=== PATIENT | male | born 1960 | race Caucasian/White ===

== ENCOUNTER 2016-12-23 07:03 | Emergency (ER) | payer MEDICAID ==
[~2016-12-23] VITALS: Ht 170.2 cm; Wt 99.0 kg
[~2016-12-23 07:03] MED LIST: ALBU2.5V NPPB; ALBU6.7H INH; CEFD300C37 PO; DOXY100C2 PO; FLUT1AER INH; LEVO100T PO; LEVO100V PO; LEVO750T26 PO; PRED20TA PO; TAMS-11 PO; TAMS0.4C2 PO; TOPI100T24 PO; TOPI100T38 PO
[2016-12-23 07:05] VITALS: BP 164/90
[2016-12-23 08:41] LABS: BLOOD UREA NITROGEN 13 mg/dL (7-18)
[2016-12-23 08:46] LABS: ASPARTATE AMINO TRANSFERASE 10 U/L (15-37)
== END 2016-12-23 09:17 | disposition left against medical advice (07) ==
LOC: ED 09:11
DX: N40.1 Benign prostatic hyperplasia with lower urinary tract symptoms (principal); R33.8 Other retention of urine; R30.0 Dysuria; J45.909 Unspecified asthma, uncomplicated; E03.9 Hypothyroidism, unspecified
CPT/HCPCS: 36415; 80053; 83690; 85025; 99284

== ENCOUNTER 2016-12-23 11:41 | Emergency (ER) | payer MEDICAID ==
[~2016-12-23] VITALS: Ht 175.3 cm; Wt 90.0 kg
[2016-12-23 12:08] VITALS: BP 123/92
[2016-12-23] MEDS ORDERED: PHENAZOPYRIDINE 200 MG TABLET PO ONE (12:30)
[2016-12-23] MEDS ORDERED: PHENAZOPYRIDINE 200 MG TABLET ONE (12:35)
[2016-12-23 12:52] LABS: PATH.CAST-FLAG NOT PRESENT; SPERM-FLAG NOT PRESENT; SRC-FLAG NOT PRESENT; XTAL-FLAG NOT PRESENT; YLC-FLAG NOT PRESENT
== END 2016-12-23 14:34 | disposition home or self-care (01) ==
LOC: ED 14:05
DX: N30.01 Acute cystitis with hematuria (principal); E03.9 Hypothyroidism, unspecified; J45.909 Unspecified asthma, uncomplicated; Z88.0 Allergy status to penicillin; Z88.8 Allergy status to other drugs, medicaments and biological substances
CPT/HCPCS: 81001; 87086; 99284

== ENCOUNTER 2017-01-17 15:51 | Inpatient (IN) | payer MEDICAID ==
[~2017-01-17] VITALS: Ht 170.2 cm; Wt 102.8 kg
[2017-01-17] MEDS ORDERED: ASPIRIN 81 MG TABLET CHEW PO ONE (16:30)
[2017-01-17] MEDS ORDERED: SODIUM CHLORIDE FLUSH 10ML SYR IVF ONE (16:30)
[2017-01-17] MEDS ORDERED: methylPREDNISolone SOD SUCC 125 MG/2 ML IVP ONE (16:30)
[2017-01-17] MEDS ORDERED: ASPIRIN 81 MG TABLET CHEW ONE (16:32)
[2017-01-17] MEDS ORDERED: methylPREDNISolone SOD SUCC 125 MG/2 ML ONE (16:50)
[2017-01-17] MEDS ORDERED: MAGNESIUM SULFATE 1 GM in SODIUM CHLORIDE 0.9% 50 ML IV ONE (17:00)
[2017-01-17 17:01] LABS: ASPARTATE AMINO TRANSFERASE 13 U/L (15-37); BLOOD UREA NITROGEN 11 mg/dL (7-18)
[2017-01-17 17:07] LABS: IS PT STATUS REG ER OR PRE ER? YES
[2017-01-17] MEDS: ALBUTEROL/IPRATROPIUM 2.5MG/0.5MG, 3 ML NPPB SCH (17:14)
[2017-01-17] MEDS ORDERED: AZITHROMYCIN 500 MG in SODIUM CHLORIDE 0.9% 250 ML IV ONE (18:30)
[2017-01-17] MEDS ORDERED: ACETAMINOPHEN 325 MG TABLET PO PRN (19:30)
[2017-01-17] MEDS ORDERED: BISACODYL 10 MG SUPP PR PRN (19:30)
[2017-01-17] MEDS ORDERED: POLYETHYLENE GLYCOL 17 GM PACKET PO PRN (19:30)
[2017-01-17] MEDS ORDERED: GUAIFENESIN/DM 200-20MG, 10ML UDC PO PRN (19:30)
[2017-01-17] MEDS: AZITHROMYCIN 500 MG in SODIUM CHLORIDE 0.9% 250 ML IV SCH (19:30)
[2017-01-17] MEDS ORDERED: MAGNESIUM SULFATE PMX 2GM/50ML 50 ML IV ONE (19:30)
[2017-01-17] MEDS: HEPARIN 5,000 UNITS/ML, 1ML SQ SCH (19:30)
[2017-01-17] MEDS ORDERED: ONDANSETRON 2MG/ML, 2ML IVPush PRN (19:30)
[2017-01-17] MEDS: SODIUM CHLORIDE FLUSH 3ML SYRINGE IVF SCH (21:00)
[2017-01-17] MEDS: TOPIRAMATE 100 MG TABLET PO SCH (22:04)
[2017-01-17] MEDS: TAMSULOSIN 0.4 MG CAP.ER.24H PO SCH (22:05)
[2017-01-17] MEDS: methylPREDNISolone SOD SUCC 125 MG/2 ML IVPush SCH (22:06)
[2017-01-17 23:08] VITALS: BP 138/42
[2017-01-17] MEDS: ALBUTEROL/IPRATROPIUM 2.5MG/0.5MG, 3 ML NPPB PRN (23:57)
[2017-01-18] MEDS: HEPARIN 5,000 UNITS/ML, 1ML SQ SCH ×3 (03:30→19:30)
[2017-01-18] MEDS: methylPREDNISolone SOD SUCC 125 MG/2 ML IVPush SCH ×2 (05:07→13:09)
[2017-01-18] MEDS: LEVOTHYROXINE 100 MCG TABLET PO SCH (05:07)
[2017-01-18] MEDS: ALBUTEROL/IPRATROPIUM 2.5MG/0.5MG, 3 ML NPPB SCH (05:16)
[2017-01-18 06:14] LABS: ASPARTATE AMINO TRANSFERASE 10 U/L (15-37); BLOOD UREA NITROGEN 10 mg/dL (7-18)
[2017-01-18 07:28] VITALS: BP 112/71
[2017-01-18] MEDS: SENNA/DOCUSATE TABLET PO SCH (08:29)
[2017-01-18] MEDS: TOPIRAMATE 100 MG TABLET PO SCH ×2 (08:30→19:37)
[2017-01-18] MEDS: SODIUM CHLORIDE FLUSH 3ML SYRINGE IVF SCH ×2 (08:30→19:38)
[2017-01-18] MEDS: ALBUTEROL/IPRATROPIUM 2.5MG/0.5MG, 3 ML NPPB PRN ×2 (12:10→22:29)
[2017-01-18] MEDS: FLUTICASONE/VILANTEROL 100-25MCG/INH INH SCH (13:09)
[2017-01-18 13:50] VITALS: BP 108/67
[2017-01-18] MEDS: SODIUM CHLORIDE 0.9% 1,000 ML IV SCH ×2 (16:07→23:34)
[2017-01-18] MEDS ORDERED: ALUMINUM/MAG/SIMETHICONE 30 ML UDC PO PRN (19:30)
[2017-01-18] MEDS: AZITHROMYCIN 500 MG in SODIUM CHLORIDE 0.9% 250 ML IV SCH (19:37)
[2017-01-18] MEDS: methylPREDNISolone SOD SUCC 40 MG/ML IVPush SCH (19:37)
[2017-01-18] MEDS: TAMSULOSIN 0.4 MG CAP.ER.24H PO SCH (19:38)
[2017-01-18] MEDS: CALCIUM CARBONATE 500 MG TAB.CHEW PO PRN ×2 (20:28→22:41)
[2017-01-18 22:08] VITALS: BP 128/62
[2017-01-18] MEDS: DIPHENHYDRAMINE 25 MG CAPSULE PO PRN (22:40)
[2017-01-19] MEDS: HEPARIN 5,000 UNITS/ML, 1ML SQ SCH ×3 (03:30→19:30)
[2017-01-19] MEDS: methylPREDNISolone SOD SUCC 40 MG/ML IVPush SCH (03:46)
[2017-01-19 03:54] VITALS: BP 110/68
[2017-01-19 05:38] LABS: BLOOD UREA NITROGEN 18 mg/dL (7-18)
[2017-01-19] MEDS: LEVOTHYROXINE 100 MCG TABLET PO SCH (06:00)
[2017-01-19] MEDS: TOPIRAMATE 100 MG TABLET PO SCH ×2 (08:20→20:53)
[2017-01-19] MEDS: FLUTICASONE/VILANTEROL 100-25MCG/INH INH SCH (08:21)
[2017-01-19] MEDS: SODIUM CHLORIDE FLUSH 3ML SYRINGE IVF SCH ×2 (08:21→20:56)
[2017-01-19] MEDS: SENNA/DOCUSATE TABLET PO SCH (08:21)
[2017-01-19 08:25] VITALS: BP 120/78
[2017-01-19] MEDS: ALBUTEROL/IPRATROPIUM 2.5MG/0.5MG, 3 ML NPPB PRN ×2 (12:00→21:16)
[2017-01-19 15:15] VITALS: BP 112/69
[2017-01-19] MEDS: predniSONE 50MG TABLET PO SCH (16:03)
[2017-01-19 19:32] VITALS: BP 117/73
[2017-01-19] MEDS: AZITHROMYCIN 500 MG in SODIUM CHLORIDE 0.9% 250 ML IV SCH (19:44)
[2017-01-19] MEDS: TAMSULOSIN 0.4 MG CAP.ER.24H PO SCH (20:53)
[2017-01-19] MEDS: CALCIUM CARBONATE 500 MG TAB.CHEW PO PRN (20:53)
[2017-01-19] MEDS: DIPHENHYDRAMINE 25 MG CAPSULE PO PRN (22:26)
[2017-01-20] MEDS: HEPARIN 5,000 UNITS/ML, 1ML SQ SCH ×2 (03:30→11:30)
[2017-01-20 04:45] VITALS: BP 121/77
[2017-01-20] MEDS: LEVOTHYROXINE 100 MCG TABLET PO SCH (06:40)
[2017-01-20] MEDS: predniSONE 50MG TABLET PO SCH (08:55)
[2017-01-20] MEDS: SODIUM CHLORIDE FLUSH 3ML SYRINGE IVF SCH (08:55)
[2017-01-20] MEDS: TOPIRAMATE 100 MG TABLET PO SCH (08:55)
[2017-01-20] MEDS: SENNA/DOCUSATE TABLET PO SCH (08:55)
[2017-01-21 12:50] VITALS: BP 135/73
== END 2017-01-20 16:50 | disposition home or self-care (01) | DRG 189 ==
LOC: ED 17:20 → EDIP 18:24 → 3NE 19:55 → DCLOUNGE 01-20 16:45 → 3NE 01-21 14:08 → DCLOUNGE 01-21 14:08
PROVIDERS: ADMIT Internal Medicine; ATTEND Internal Medicine
PROC: 5A09357 Assistance with Respiratory Ventilation, Less than 24 Consecutive Hours, Continuous Positive Airway Pressure (ICD-10-PCS; principal; 2017-01-17)
DX: J96.01 Acute respiratory failure with hypoxia (principal); J44.1 Chronic obstructive pulmonary disease with (acute) exacerbation; E03.9 Hypothyroidism, unspecified; N40.0 Benign prostatic hyperplasia without lower urinary tract symptoms; G40.909 Epilepsy, unspecified, not intractable, without status epilepticus; F12.90 Cannabis use, unspecified, uncomplicated; Z80.3 Family history of malignant neoplasm of breast; D72.829 Elevated white blood cell count, unspecified; R00.0 Tachycardia, unspecified; T38.0X5A Adverse effect of glucocorticoids and synthetic analogues, initial encounter; R73.9 Hyperglycemia, unspecified; D64.9 Anemia, unspecified; Z88.0 Allergy status to penicillin; Z79.82 Long term (current) use of aspirin; Z99.81 Dependence on supplemental oxygen; Z88.6 Allergy status to analgesic agent
CPT/HCPCS: 36415; 71010; 80048; 80053; 84145; 84484; 85025; 93005; 94640; 94660; 96365; 96366; 96375; J0456; J3475; J7620; J2920; J2930; J7030; J7050; J7512; Q0163

== ENCOUNTER → 2018-05-29 | Outpatient (CLI) | payer MEDICAID ==
[~2018-05-29] MED LIST changes: +GADOBUTROL 10 MMOL/10 ML PFS ONE; -TOPI100T38 PO; +TOPI100T39 PO
== END | disposition home or self-care (01) ==
LOC: CFH 07:59
PROVIDERS: ATTEND Psychiatry & Neurology Neurology
DX: R56.9 Unspecified convulsions (principal); G93.89 Other specified disorders of brain
CPT/HCPCS: 70553; A9585

== ENCOUNTER 2019-09-06 04:01 | Emergency (ER) | payer MEDICAID ==
[~2019-09-06] VITALS: Ht 175.3 cm; Wt 111.9 kg
[~2019-09-06 04:01] MED LIST changes: -ALBU6.7H INH; +ALBU6.7H8 INH; -GADOBUTROL 10 MMOL/10 ML PFS ONE; -LEVO100V PO; +LEVO100V8 PO
--- NOTE | 2019-09-06 04:35 | NUR ---
PT REPORTS NOT BEING ABLE TO URINATE SINCE 2AM YESTERDAY. PT REPORTS TRYING MULTIPLE TIMES WITHOUT BEING ABLE TO VOID. PT REPORTS DISCOMFORT AND "FULL" FEELING. PT CONENCTED TO MONITORING. CALL LIGHT WITHIN REACH.
--- NOTE | 2019-09-06 05:14 | NUR ---
THIS RN INTO PERFORM STRAIGHT CATH. PROCEDURE WAS EXPLAINED TO PT AND HE REQUESTED A FEMALE NURSE DO IT. PT WAS INFORMED MALES PERFORM THE PROCEDURE ON MALES AND FEMALES PERFORM THE PROCEDURE ON FEMALES. PT REPLIES "WELL THAT DOESNT SEEM RIGHT". PT WAS INFORMED WE COULD FIND ANOTHER MALE RN TO PERFORM THE PROCEDURE IF HE REQUESTS. PT STATED IT WAS OKAY FOR THIS RN TO DO THE PROCEDURE. WHILST STRAIGHT CATHING THE PT HE STATES HE WOULD LIKE TO DO THIS TO A FEMALE. PT REDIRECTED TO THE CURRENT PROCEDURE. STRAIGHT CATH YIELDED SEVERAL DROPS OF URINE. NOT ENOUGH FOR A SAMPLE. PT THEN REQUESTED THIS RN CLEAN HIS PENIS OF THE BETADINE AND LUBE. OBLIGED. THEN PT REQUEST THIS RN CLEAN HIS UNDERPANTS. PT GIVEN CLEANING SUPPLIES. PA INFORMED. PRIMARY RN INFORMED.
[2019-09-06 05:36] LABS: BASOPHILS # (AUTO) 0.04 x10^3/uL (0-0.1); BASOPHILS % (AUTO) 1 % (0-1); EOSINOPHILS # (AUTO) 0.27 x10^3/uL (0-0.4); EOSINOPHILS % (AUTO) 4 % (1-7); LYMPHOCYTES # (AUTO) 2.28 x10^3/uL (1-3.4); LYMPHOCYTES % (AUTO) 35 % (22-44); MD NO; MEAN CORPUSCULAR HEMOGLOBIN 29.7 pg (27.5-34.5); MEAN CORPUSCULAR HGB CONC 32.9 g/dL (33.2-36.2); MEAN CORPUSCULAR VOLUME 90.2 fL (81-97); MEAN PLATELET VOLUME 7.5 fL (7.4-10.4); MONOCYTES # (AUTO) 0.52 x10^3/uL (0.2-0.8); MONOCYTES % (AUTO) 8 % (2-9); NEUTROPHILS # (AUTO) 3.48 x10^3/uL (1.8-6.8); NEUTROPHILS % (AUTO) 53 % (42-75); PLATELET COUNT 234 x10^3/uL (130-400); RED BLOOD COUNT 5.02 x10^6/uL (4.38-5.82)
[2019-09-06 05:40] LABS: ALBUMIN 3.7 g/dL (3.4-5.0); ANION GAP 6 mmol/L (5-15); CALCIUM 8.7 mg/dL (8.5-10.1); CHLORIDE 112 mmol/L (98-107)
[2019-09-06 05:42] VITALS: BP 155/92
[2019-09-06 05:43] LABS: ALANINE AMINOTRANSFERASE 26 U/L (12-78); ALKALINE PHOSPHATASE 48 U/L (45-117); BILIRUBIN,TOTAL 0.4 mg/dL (0.2-1.0); CREATININE 1.31 mg/dL (0.7-1.3); TOTAL PROTEIN 6.9 g/dL (6.4-8.2)
== END 2019-09-06 06:07 | disposition home or self-care (01) ==
LOC: ED 05:08
DX: R33.9 Retention of urine, unspecified (principal); R30.0 Dysuria; E03.9 Hypothyroidism, unspecified; G40.909 Epilepsy, unspecified, not intractable, without status epilepticus; Z88.0 Allergy status to penicillin
CPT/HCPCS: 36415; 51701; 80053; 85025; 99284; P9612

== ENCOUNTER → 2019-10-08 | Outpatient (CLI) | payer MEDICAID ==
[~2019-10-08] MED LIST changes: +OMNIPAQUE 350 MG/ML, 150 ML BOTTLE ONE
== END | disposition home or self-care (01) ==
LOC: CFH 12:52
PROVIDERS: ATTEND Nurse Practitioner Family
DX: R31.21 Asymptomatic microscopic hematuria (principal); K80.80 Other cholelithiasis without obstruction; N20.0 Calculus of kidney; N40.0 Benign prostatic hyperplasia without lower urinary tract symptoms
CPT/HCPCS: 74178; Q9967

== ENCOUNTER 2019-11-22 13:52 | Emergency (ER) | payer MEDICAID ==
[~2019-11-22] VITALS: Ht 175.3 cm; Wt 112.1 kg
[~2019-11-22 13:52] MED LIST changes: -OMNIPAQUE 350 MG/ML, 150 ML BOTTLE ONE
[2019-11-22 13:54] VITALS: BP 125/83
--- NOTE | 2019-11-22 14:33 | NUR ---
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 NADN. PT GIVEN A GOWN AND ASKED TO CHANGE.
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
--- NOTE | 2019-11-22 15:52 | NUR ---
Patient given discharge instructions and they have confirmed that they understand the instructions. Patient ambulatory with steady gait.
== END 2019-11-22 15:53 | disposition home or self-care (01) ==
LOC: ED 15:00
DX: G89.29 Other chronic pain (principal); M25.512 Pain in left shoulder; J45.909 Unspecified asthma, uncomplicated; E03.9 Hypothyroidism, unspecified; G40.909 Epilepsy, unspecified, not intractable, without status epilepticus; R94.31 Abnormal electrocardiogram [ECG] [EKG]; Z80.0 Family history of malignant neoplasm of digestive organs
CPT/HCPCS: 93005; 99283

== ENCOUNTER 2021-01-20 14:36 | Emergency (ER) | payer MEDICAID ==
[~2021-01-20] VITALS: Ht 170.2 cm; Wt 112.7 kg
[2021-01-20 14:58] VITALS: BP 142/92
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
--- NOTE | 2021-01-20 15:34 | NUR ---
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 SECURITY CALLED. PT ESCORTED BACK TO ROOM. PT STATED HE "DOESN'T HAVE TIME FOR THIS AND DOESN'T HAVE TO LISTEN TO YOU" AND HAS DECIDED TO LEAVE AMA. DR. JACKSON NOTIFED
--- NOTE | 2021-01-20 15:36 | NUR ---
PT LEFT WITH STEADY GAIT WITH ALL BELONGINGS ESCORTED OUT BY SECURITY.
== END 2021-01-20 15:42 | disposition left against medical advice (07) ==
LOC: ED 15:36
DX: G89.29 Other chronic pain (principal); M25.511 Pain in right shoulder; E03.9 Hypothyroidism, unspecified; J45.909 Unspecified asthma, uncomplicated
CPT/HCPCS: 99283

== ENCOUNTER 2021-02-06 14:27 | Emergency (ER) | payer MEDICAID ==
[~2021-02-06] VITALS: Ht 170.2 cm; Wt 112.4 kg
[2021-02-06 16:48] LABS: MICROSCOPIC INDICATED
[2021-02-06 17:05] LABS: BASOPHILS % (AUTO) 2 % (0-1); EOSINOPHILS % (AUTO) 2 % (1-7); LYMPHOCYTES % (AUTO) 25 % (22-44); MEAN CORPUSCULAR HEMOGLOBIN 29.3 pg (27.5-34.5); MEAN CORPUSCULAR HGB CONC 33.7 g/dL (33.2-36.2); MEAN PLATELET VOLUME 7.3 fL (7.4-10.4); MONOCYTES % (AUTO) 9 % (2-9); NEUTROPHILS % (AUTO) 62 % (42-75); PLATELET COUNT 232 x10^3/uL (130-400); RED BLOOD COUNT 5.06 x10^6/uL (4.38-5.82); RED CELL DISTRIBUTION WIDTH 13.5 % (9.4-14.8)
[2021-02-06 17:16] LABS: ALBUMIN 3.6 g/dL (3.4-5.0); ANION GAP 7 mmol/L (5-15); CALCIUM 9.4 mg/dL (8.5-10.1); CHLORIDE 111 mmol/L (98-107)
[2021-02-06 17:21] LABS: ALANINE AMINOTRANSFERASE 34 U/L (12-78); ALKALINE PHOSPHATASE 53 U/L (45-117); BILIRUBIN,TOTAL 0.3 mg/dL (0.2-1.0); CREATININE 1.16 mg/dL (0.7-1.3); TOTAL PROTEIN 7.1 g/dL (6.4-8.2)
--- NOTE | 2021-02-06 18:24 | NUR ---
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
--- NOTE | 2021-02-06 18:28 | NUR ---
imposer: attempted to move patient from lobby to room, no answer in lobby
--- NOTE | 2021-02-06 19:18 | NUR ---
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
--- NOTE | 2021-02-06 19:30 | NUR ---
DR CANTU IN ROOM
--- NOTE | 2021-02-06 19:39 | NUR ---
PT C/O RIGHT LOWER ABD PAIN WITH SOME BLOOD IN HIS URINE. VS STABLE. NO ACUTE DISTRESS NOTED. CALL LIGHT IN PLACE. WILL CONTINUE TO MONITOR.
[2021-02-06] MEDS ORDERED: KETOROLAC 30 MG/1 ML ONE (19:43)
[2021-02-06] MEDS ORDERED: KETOROLAC 30 MG/1 ML IM ONE (20:00)
--- NOTE | 2021-02-06 20:34 | NUR ---
PT WATCHING TV IN ROOM. VS STABLE. NO ACUTE DISTRESS NOTED. CALL LIGHT IN PLACE. WILL CONTINUE TO MONITOR.
--- NOTE | 2021-02-06 20:36 | NUR ---
PT AMBULATED TO BATHROOM
[2021-02-06 21:09] VITALS: BP 143/94
== END 2021-02-06 21:19 | disposition home or self-care (01) ==
LOC: ED 19:55
DX: N20.1 Calculus of ureter (principal); R31.9 Hematuria, unspecified; J45.909 Unspecified asthma, uncomplicated; E03.9 Hypothyroidism, unspecified
CPT/HCPCS: 36415; 76770; 80053; 81001; 85025; 87086; 96372; 99285; J1885